=== PATIENT | male | born 1970 | race Caucasian/White ===

== ENCOUNTER 2020-08-18 03:45 | Emergency (ER) | payer SELFPAY ==
[~2020-08-18] VITALS: Ht 175.3 cm; Wt 114.4 kg
[2020-08-18 04:04] VITALS: Ht 175.3 cm; Wt 114.4 kg
[2020-08-18 05:59] VITALS: BP 162/81
== END 2020-08-18 05:59 | disposition home or self-care (01) ==
LOC: ED 03:45
DX: S49.91XA Unspecified injury of right shoulder and upper arm, initial encounter (principal); V29.00XA Motorcycle driver injured in collision with unspecified motor vehicles in nontraffic accident, initial encounter; Y93.I9 Activity, other involving external motion; Y92.413 State road as the place of occurrence of the external cause; Y99.8 Other external cause status